=== PATIENT | male | born 1970 | race Caucasian/White ===

== ENCOUNTER 2021-03-01 17:52 | Emergency (ER) | payer BC ==
[2021-03-01] MEDS ORDERED: Adenosine 6 MG/2 ML SDV IVPUSH ONE (18:11)
--- NOTE | 2021-03-01 18:13 | EDM.PDOC ---
<Lavon Elder - Last Filed: 03/01/21 21:00> ED HPI GENERAL MEDICAL PROBLEM - General Chief Complaint: Cardiovascular Problem Stated Complaint: HIGH HEART RATE Time Seen by Provider: 03/01/21 17:58 - History of Present Illness INITIAL COMMENTS - FREE TEXT/NARRATIVE: 8:31 PM: Signout received at [address] Edge. This a 51-year-old gentleman who presents ER today secondary to palpitations at home. Patient denies any recent fevers, shakes, chills, nausea, vomiting, diarrhea, dysuria, frequency, urgency, chest pain or shortness of breath. Patient denies any Covid symptoms. Patient denies any lower extremity edema. Patient denies any melena or bright red blood per rectum. Patient has any hemoptysis. Patient reports he never had SVT in the past. Patient denies any excessive stimulant use such as energy drinks, caffeine, diet supplement pills, nicotine, soda/coffee/[id number] medications. Upon evaluating patient in the ED, carotid sinus massage was performed which resulted in slowing down his ventricular response and revealing flutter waves. This was transient and did not last for significant amount of time. Upon reevaluation of the patient approximately 10 minutes later prior to patient getting any calcium channel franko or beta-franko, the patient's heart rate was noted to be in sinus rhythm with a rate of 70. Patient reports that his symptoms have completely resolved. Patient had a repeat EKG performed which revealed March 01, 2021 7:27 PM EKG: As interpreted by ER physician: Jael: Nonspecific ST-T wave abnormalities Normal axis No evidence of ST elevation VA Normal sinus rhythm heart rate of 73 Patient currently is asymptomatic and feels much better. Patient's labs are all within normal limits. Patient was given a dose of Lopressor 5 mg IV in the ED and was given a dose of metoprolol 50 mg XR p.o. at this time, feel patient can be discharged to home safely with outpatient follow-up with Dr. Gordillo and his primary care physician. Patient already has an appointment with a primary care physician this Sunday. Patient be given a prescription for metoprolol 25 mg daily and instructed to return to the ER if he develops any new or concerning symptoms. Reassessment at the time of disposition demonstrates that the patient is in no acute distress. The patient has remained stable throughout the entire ED visit and is without objective evidence for acute process requiring urgent intervention or hospitalization. The patient is stable for discharge, counseling is provided as documented above, discussed symptomatic treatment and specific conditions for return. I have spoken with the patient/caregiver and discussed todays findings, in addition to providing specific details for the plan of care. Questions are answered and there is agreement with the plan. - Related Data Allergies Allergy/AdvReac Type Severity Reaction Status Date / Time No Known Allergies Allergy Verified 03/01/21 17:55 Home Meds: Home Meds Benazepril [Lotensin] 1 dose PO DAILY 03/01/21 [History] Metoprolol Succinate [Kapsp[place] Sprinkle] 25 mg PO DAILY #14 cap.spr.24 03/01/21 [Rx] Sildenafil Citrate [Viagra] 1 dose PO DAILY 03/01/21 [History] #1 Interpretation Rhythm: Other Departure - Departure Time of Disposition: 20:35 Disposition: Home, Self-Care 01 Condition: Good Clinical Impression: Palpitations, Atrial flutter, SVT (supraventricular tachycardia) Prescriptions: Metoprolol Succinate [[place]sp[place] Sprinkle] 25 mg PO DAILY #14 cap.spr.24 Instructions: Supraventricular Tachycardia, Adult Referrals: Joshua Saha MD [Primary Care Provider] - Forms: ED Department Discharge Additional Instructions: You were seen and evaluated in the ER today secondary to supraventricular tachycardia that occurred. While you are here, this appears to have resolved spontaneously. Certain things can precipitate this such as stimulants, nicotine, caffeine, weight loss medicines, coffee, soda, chocolate, stress. Your tachycardia will be treated with a medication called metoprolol to take daily. Please keep your appointment with your doctor on Sunday. Please call Dr. Gordillo for a follow-up appointment so we can further evaluate your SVT. [facility] [address] [place] [id number] The following information is given to patients seen in the emergency department who are being discharged to home. This information is to outline your options for follow-up care. We provide all patients seen in our emergency department with a follow-up referral. The need for follow-up, as well as the timing and circumstances, are variable depending upon the specifics of your emergency department visit. If you don't have a primary care physician on staff, we will provide you with a referral. We always advise you to contact your personal physician following an emergency department visit to inform them of the circumstance of the visit and for follow-up with them and/or the need for any referrals to a consulting specialist. The emergency department will also refer you to a specialist when appropriate. This referral assures that you have the opportunity for follow-up care with a specialist. All of these measure are taken in an effort to provide you with optimal care, which includes your follow-up. Under all circumstances we always encourage you to contact your private physician who remains a resource for coordinating your care. When calling for follow-up care, please make the office aware that this follow-up is from your recent emergency room visit. If for any reason you are refused follow-up, please contact the [facility] Emergency Department at and asked to speak to the emergency department charge nurse. [facility] - Primary Care [address] [place] [id number] [place] [address] <Enrique Edge - Last Filed: 03/02/21 07:04> ED HPI GENERAL MEDICAL PROBLEM - General Source of Information: Reports: Patient History Limitations: Reports: No Limitations - History of Present Illness INITIAL COMMENTS - FREE TEXT/NARRATIVE: Patient is a 51-year-old male with a history of hypertension presents today for palpitations. Said he felt his heart beating fast. Checked at home and was in the 140s. Symptoms never happened before. Denies any chest pain shortness of breath or any symptoms from the fast heart rate. Patient denies any excessive coffee or take any energy drinks or other supplements. Past Medical History Cardiovascular History: Reports: Hypertension - Infectious Disease History Infectious Disease History: Reports: Novel Coronavirus Social & Family History - Caffeine Use Caffeine Use: Reports: Coffee, Tea - Recreational Drug Use Recreational Drug Use: No ED ROS GENERAL - Review of Systems Review Of Systems: See Below Constitutional: Reports: No Symptoms HEENT: Reports: No Symptoms Respiratory: Reports: No Symptoms Cardiovascular: Reports: Palpitations Endocrine: Reports: No Symptoms GI/Abdominal: Reports: No Symptoms : Reports: No Symptoms Musculoskeletal: Reports: No Symptoms Skin: Reports: No Symptoms Neurological: Reports: No Symptoms Psychiatric: Reports: No Symptoms Hematologic/Lymphatic: Reports: No Symptoms Immunologic: Reports: No Symptoms ED EXAM, GENERAL - Physical Exam Exam: See Below Exam Limited By: No Limitations General Appearance: Alert, WD/WN, No Apparent Distress Eye Exam: Bilateral Eye: EOMI, PERRL Head: Atraumatic Respiratory/Chest: No Respiratory Distress, Lungs Clear, Normal Breath Sounds Cardiovascular: Normal Peripheral Pulses, Regular Rate, Rhythm GI/Abdominal: Normal Bowel Sounds, Soft, Non-Tender Extremities: Normal Inspection Neurological: Alert, Oriented, Normal Cognition, Normal Gait #1 Interpretation EKG Date: 03/01/21 Time: 17:58 Rhythm: Other (possible SVT) Rate (Beats/Min): 144 ST-T: Normal Course - Vital Signs Last Recorded V/S: Last Vital Signs Temp 96.9 F 03/01/21 17:56 Pulse 63 03/01/21 21:15 Resp 16 03/01/21 21:15 BP 140/89 03/01/21 21:15 Pulse Ox 98 03/01/21 21:15 - Orders/Labs/Meds Labs: Laboratory Tests 03/01/21 03/01/21 03/01/21 Range/Units 18:07 18:07 20:09 WBC 9.63 (4.0-11.0) K/uL RBC 5.40 (4.50-5.90) M/uL Hgb 16.7 (13.0-17.0) g/dL Hct 48.2 (38.0-50.0) % MCV 89.3 (80.0-98.0) fL MCH 30.9 (27.0-32.0) pg MCHC 34.6 (31.0-37.0) g/dL RDW Std Deviation 43.1 (28.0-62.0) fl RDW Coeff of Rommel 13 (11.0-15.0) % Plt Count 230 (150-400) K/uL MPV 11.80 (7.40-12.00) fL Neut % (Auto) 50.8 (48.0-80.0) % Lymph % (Auto) 35.1 (16.0-40.0) % [place] % (Auto) 10.5 (0.0-15.0) % Eos % (Auto) 3.2 (0.0-7.0) % Baso % (Auto) 0.4 (0.0-1.5) % Neut # (Auto) 4.9 (1.4-5.7) K/uL Lymph # (Auto) 3.4 H (0.6-2.4) K/uL [place] # (Auto) 1.0 H (0.0-0.8) K/uL Eos # (Auto) 0.3 (0.0-0.7) K/uL Baso # (Auto) 0.0 (0.0-0.1) K/uL Nucleated RBC % 0.0 /100WBC Nucleated RBCs # 0 K/uL Sodium 140 (136-148) mmol/L Potassium 3.6 (3.5-5.1) mmol/L Chloride 101 (98-107) mmol/L Carbon Dioxide 29.1 (21.0-32.0) mmol/L BUN 14 (7.0-18.0) mg/dL Creatinine 1.3 (0.8-1.3) mg/dL Est Cr Clr Drug Dosing 83.46 mL/min Estimated GFR (MDRD) 58.4 ml/min Glucose 121 H (74-106) mg/dL Calcium 9.1 (8.5-10.1) mg/dL Total Bilirubin 0.5 (0.2-1.0) mg/dL AST 14 L (15-37) IU/L ALT 47 (14-63) IU/L Alkaline Phosphatase 96 (46-116) U/L Creatine Kinase 288 (26-308) U/L Troponin I < 0.050 (0.000-0.056) ng/mL Total Protein 8.0 (6.4-8.2) g/dL Albumin 4.3 (3.4-5.0) g/dL Globulin 3.7 (2.6-4.0) g/dL Albumin/Globulin Ratio 1.2 (0.9-1.6) Urine Opiates Screen NEGATIVE (NEGATIVE) Ur Oxycodone Screen NEGATIVE (NEGATIVE) Urine Methadone Screen NEGATIVE (NEGATIVE) Ur Barbiturates Screen NEGATIVE (NEGATIVE) Ur Phencyclidine Scrn NEGATIVE (NEGATIVE) Ur Amphetamine Screen NEGATIVE (NEGATIVE) U Methamphetamines Scrn NEGATIVE (NEGATIVE) U Benzodiazepines Scrn NEGATIVE (NEGATIVE) U Cocaine Metab Screen NEGATIVE (NEGATIVE) U Marijuana (THC) Screen NEGATIVE (NEGATIVE) Ethyl Alcohol < 3.0 mg/dL Meds: Medications Discontinued Medications Generic Name Dose Route Start Last Admin Trade Name Freq PRN Reason Stop Dose Admin Adenosine 6 mg 03/01/21 18:11 03/01/21 18:26 Adenosine 6 Mg/2 Ml Sdv IVPUSH 03/01/21 18:12 6 mg NOW ONE Administration Diltiazem HCl 20 mg 03/01/21 18:51 03/01/21 19:47 Diltiazem 25 Mg/5 Ml Sdv IVPUSH 03/01/21 18:52 Not Given ONETIME ONE Metoprolol Succinate 50 mg 03/01/21 19:34 03/01/21 19:43 Metoprolol Succinate 50 Mg Tab.Er PO 03/01/21 19:35 50 mg ONETIME ONE Administration Metoprolol Tartrate 5 mg 03/01/21 19:33 03/01/21 19:43 Metoprolol Tartrate 5 Mg/5 Ml Sdv IVPUSH 03/01/21 19:34 5 mg ONETIME ONE Administration Sepsis Event Note (ED) - Evaluation Sepsis Screening Result: No Definite Risk - Focused Exam Vital Signs: Vital Signs Pulse Pulse Resp BP BP Pulse Ox 03/01/21 21:15 63 16 140/89 98 03/01/21 20:23 68 15 113/75 98 03/01/21 19:43 71 121/86 03/01/21 19:32 78 16 139/90 96 - Assessment/Plan Plan: Patient is a 51-year-old male who presents today for palpitations. Patient EKG looks to be a possible atrial tachycardia but this is not A. fib or a flutter. We will try to use adenosine initially to see if underlying rhythm is possible. Also give IV fluids.
[2021-03-01 18:39] LABS: BLOOD UREA NITROGEN,BUN 14 mg/dL (7.0-18.0); CARBON DIOXIDE,CO2 29.1 mmol/L (21.0-32.0); CHLORIDE,CL 101 mmol/L (98-107); GLUCOSE RANDOM 121 mg/dL (74-106); POTASSIUM,K 3.6 mmol/L (3.5-5.1); SODIUM,NA 140 mmol/L (136-148)
[2021-03-01] MEDS ORDERED: Diltiazem 25 MG/5 ML SDV IVPUSH ONE (18:51)
--- NOTE | 2021-03-01 19:24 | CR ---
HISTORY: Tachycardia COMPARISON: Chest two views from 01/12/2012 FINDINGS: A portable erect AP view of the chest was obtained at 1839 hours. Again seen are small calcified granulomata in the right mid-upper lung and in the right hilum. The lungs otherwise remain clear. No focal or diffuse infiltrates are present. The heart remains normal in size. The mediastinum is normal in appearance. The osseous structures are normal in appearance for the patient`s age. IMPRESSION: Normal portable chest single view. Dictated by Karson Keene MD @ 03/01/2021 7:22:31 PM (Electronically Signed)
[2021-03-01] MEDS ORDERED: Metoprolol Tartrate 5 MG/5 ML SDV IVPUSH ONE (19:33)
[2021-03-01] MEDS ORDERED: Metoprolol Succinate 50 MG Tab.ER PO ONE (19:34)
== END 2021-03-01 21:15 | disposition home or self-care (01) ==
LOC: MW.ED 17:52
DX: I48.92 Unspecified atrial flutter (principal); I47.1 Supraventricular tachycardia; Z79.899 Other long term (current) drug therapy
CPT/HCPCS: 36415; 71045; 80053; 80305; 80307; 82550; 84484; 85025; 93005; 96374; 96375; 99285; A9270; J0153; J3490

== ENCOUNTER 2021-09-02 07:51 | Emergency (ER) | payer BC ==
[2021-09-02] MEDS ORDERED: Metoprolol Tartrate 5 MG/5 ML SDV IVPUSH ONE (08:09)
[2021-09-02 09:07] LABS: BLOOD UREA NITROGEN,BUN 18 mg/dL (7.0-18.0); CARBON DIOXIDE,CO2 25.3 mmol/L (21.0-32.0); CHLORIDE,CL 102 mmol/L (98-107); GLUCOSE RANDOM 165 mg/dL (74-106); POTASSIUM,K 3.4 mmol/L (3.5-5.1); SODIUM,NA 139 mmol/L (136-148)
[2021-09-02 09:08] LABS: ESTIMATED GFR > 60.0 ml/min
[2021-09-02] MEDS ORDERED: Diltiazem 50 MG/10 ML SDV IVPUSH ONE (09:23)
== END 2021-09-02 10:14 | disposition home or self-care (01) ==
LOC: MW.ED 07:51
DX: I48.91 Unspecified atrial fibrillation (principal); I48.92 Unspecified atrial flutter; I10 Essential (primary) hypertension; Z86.16 Personal history of COVID-19; Z79.899 Other long term (current) drug therapy
CPT/HCPCS: 36415; 71045; 80053; 84484; 85025; 93005; 96374; 96375; 99285; J3490

== ENCOUNTER 2024-10-28 06:07 | Emergency (ER) | payer BC ==
[2024-10-28] MEDS ORDERED: Sodium Chloride 0.9% 10 ML Syringe FLUSH PRN (06:21)
[2024-10-28] MEDS ORDERED: Sodium Chloride 0.9% 2.5 ML Syringe FLUSH PRN (06:21)
[2024-10-28 06:27] LABS: BASOPHILS ABSOLUTE AUTO 0.08 K/uL (0.00-0.20); BASOPHILS PERCENT AUTO 0.7 % (0.0-1.0); EOSINOPHILS ABSOLUTE AUTO 0.44 K/uL (0.00-0.45); EOSINOPHILS PERCENT AUTO 4.0 % (0.0-6.0); IMMATURE GRAN ABSOLUTE AUTO 0.11 K/uL (0.00-0.05); IMMATURE GRAN PERCENT AUTO 1.0 % (0.0-0.4); LYMPHOCYTES ABSOLUTE AUTO 3.22 K/uL (1.00-4.80); LYMPHOCYTES PERCENT AUTO 29.1 % (24.0-44.0); MEAN PLATELET VOLUME 11.1 fL (9.4-12.4); MONOCYTES ABSOLUTE AUTO 1.42 K/uL (0.00-0.80); MONOCYTES PERCENT AUTO 12.8 % (0.0-8.0); NEUTROPHILS ABSOLUTE AUTO 5.80 K/uL (1.80-7.70); NEUTROPHILS PERCENT AUTO 52.4 % (41.0-71.0); NRBC ABSOLUTE 0.00 K/uL (0.00-0.02); NRBC PERCENT 0.0 /100WBC (0.0-0.2); PLATELET COUNT,PLT 210 K/uL (150-400); RED BLOOD CELL COUNT 5.72 M/uL (4.52-5.90); WHITE BLOOD CELL COUNT,WBC 11.07 K/uL (3.9-11.3)
[2024-10-28 06:32] LABS: INR 0.97 (0.86-1.11)
[2024-10-28] MEDS: Diltiazem 25 MG/5 ML SDV IVPUSH ONE (06:42)
[2024-10-28 06:57] LABS: A/G RATIO 1.2 (0.9-1.6); ALANINE AMINOTRANSFERASE,ALT 52.0 IU/L (14-63); ASPARTATE AMNIOTRANSFERASE,AST 11.0 IU/L (15-37); BILIRUBIN TOTAL 0.6 mg/dL (0.2-1.0); BLOOD UREA NITROGEN,BUN 19.0 mg/dL (7.0-18.0); CARBON DIOXIDE,CO2 28.1 mmol/L (21.0-32.0); CHLORIDE,CL 102.0 mmol/L (98-107); CREATININE 1.2 mg/dL (0.8-1.3); EST CRCL DRUG DOSING (CG) 80.45 mL/min; ESTIMATED GFR 72.0 mL/min (>60); GLUCOSE RANDOM 138.0 mg/dL (74-106); POTASSIUM,K 3.4 mmol/L (3.5-5.1); PRO B-TYPE NATRIUR PEPT,BNPPRO 94.0 pg/mL (0-125); PROTEIN TOTAL,TP 7.6 g/dL (6.4-8.2); SODIUM,NA 139.0 mmol/L (136-148); TSH ULTRASENSITIVE 5.68 uIU/mL (0.36-3.74)
[2024-10-28 07:20] LABS: T4 FREE 0.83 ng/dL (0.76-1.46)
== END 2024-10-28 09:05 | disposition home or self-care (01) ==
LOC: MW.ED 06:07
DX: I48.91 Unspecified atrial fibrillation (principal); I10 Essential (primary) hypertension; Z79.899 Other long term (current) drug therapy; Z86.16 Personal history of COVID-19
CPT/HCPCS: 36415; 71045; 80053; 83880; 84439; 84443; 84484; 85025; 85610; 93005; 96374; 99285; A9270; J3490; 99284